=== PATIENT | male | born 1990 | race Caucasian/White ===

== ENCOUNTER 2017-03-17 15:16 | Emergency (ER) | payer OTHER ==
[~2017-03-17 15:16] MED LIST: METR500T4 PO; VICOT PO; [UNRECOGNIZED DRUG - CODE] PO
== END 2017-03-17 16:34 | disposition left against medical advice (07) ==
LOC: EMS 15:17
DX: M54.9 Dorsalgia, unspecified (principal); Z53.21 Procedure and treatment not carried out due to patient leaving prior to being seen by health care provider

== ENCOUNTER 2022-03-10 02:33 | Emergency (ER) | payer OTHER ==
[~2022-03-10] VITALS: Ht 170.2 cm; Wt 95.9 kg
[~2022-03-10 02:33] MED LIST changes: +METR-172 PO; -METR500T4 PO
[2022-03-10 02:38] VITALS: BP 120/73
[2022-03-10 03:48] LABS: COVID AG,FIA SOURCE NASAL SWAB
[2022-03-10 04:17] LABS: INFLUENZA TYPE A NEGATIVE FOR TYPE A (NEGATIVE); INFLUENZA TYPE B NEGATIVE FOR TYPE B (NEGATIVE)
[2022-03-10] MEDS ORDERED: AZIT250T9 PO (04:30)
[2022-03-10] MEDS ORDERED: AMOX1TAB16 PO (04:31)
== END 2022-03-10 04:57 | disposition home or self-care (01) ==
LOC: EMS 02:35
DX: J18.9 Pneumonia, unspecified organism (principal); F17.210 Nicotine dependence, cigarettes, uncomplicated; F12.90 Cannabis use, unspecified, uncomplicated; Z20.822 Contact with and (suspected) exposure to COVID-19
CPT/HCPCS: 71045; 87804; 99284